=== PATIENT | male | born 1950 | race Caucasian/White ===

== ENCOUNTER 2022-06-04 04:23 | Day surgery (SDC) | payer OTHER ==
[~2022-06-04 04:23] MED LIST: BSS (NA/CA/MG/K) BALANCED SALT SOLUTION OPHTH SOLN 15 ML BOTTLE IO ONE; CHONDROITIN SU A/HYALUR SOD 1 KIT IO ONE; PHENYLEPHRINE/KETOROLAC 4 ML VIAL IO ONE; TETRACAINE 0.5% OPHTH SOLN 2 ML BOTTLE OS ONE; TOBRAMYCIN/DEXAMETHASONE OPHTH. OINTMENT 1 TUBE OS ONE; TRYPAN BLUE 0.5 ML DISP.SYRIN IO ONE
[2022-06-04 07:10] VITALS: RESP 18; BMI 26.6
[2022-06-04] MEDS ORDERED: TOBRAMYCIN/DEXAMETHASONE OPHTH. OINTMENT 1 TUBE ONE (07:10)
[2022-06-04] MEDS ORDERED: PHENYLEPHRINE/KETOROLAC 4 ML VIAL IO ONE ×2 (07:10→11:23)
[2022-06-04] MEDS ORDERED: POVIDONE-IODINE 5% OPHTHALMIC PREP 30 ML SOLUTION ONE (07:10)
[2022-06-04] MEDS ORDERED: LIDOCAINE HCL/PF 1% SDV 5ML VIAL ONE (07:13)
[2022-06-04] MEDS ORDERED: CIPROFLOXACIN HCL 0.3% OPHTH 2.5ML BOTTLE OP SCH (07:30)
[2022-06-04] MEDS ORDERED: ACETAMINOPHEN 325 MG TABLET (FP) PO PRN (07:30)
[2022-06-04] MEDS ORDERED: DICLOFENAC SODIUM 0.1% OPHTHALMIC 2.5ML BOTTLE OP SCH (07:30)
[2022-06-04] MEDS ORDERED: PHENYLEPHRINE 2.5% OPHTH SOLN 15 ML BOTTLE OP SCH (07:30)
[2022-06-04] MEDS ORDERED: TROPICAMIDE 1% OPHTH SOLN 15 ML BOTTLE OP SCH (07:30)
[2022-06-04] MEDS ORDERED: TROPICAMIDE 1% OPHTH SOLN 15 ML BOTTLE ONE (07:35)
[2022-06-04] MEDS ORDERED: MIDAZOLAM HCL 2 MG/2 ML SINGLE DOSE VIAL ONE (10:20)
[2022-06-04] MEDS ORDERED: PROPOFOL 20 ML ONE (10:36)
[2022-06-04] MEDS ORDERED: BUPIVACAINE HCL/PF 0.75% 10 ML VIAL RB ONE (11:05)
[2022-06-04] MEDS ORDERED: LIDOCAINE HCL/PF 2% SDV 5ML VIAL PNB ONE (11:05)
[2022-06-04] MEDS ORDERED: BSS (NA/CA/MG/K) BALANCED SALT SOLUTION OPHTH SOLN 15 ML BOTTLE IO ONE (11:15)
[2022-06-04] MEDS ORDERED: TRYPAN BLUE 0.5 ML DISP.SYRIN IO ONE (11:16)
[2022-06-04] MEDS ORDERED: CHONDROITIN SU A/HYALUR SOD 1 KIT IO ONE (11:17)
[2022-06-04] MEDS ORDERED: TOBRAMYCIN/DEXAMETHASONE OPHTH. OINTMENT 1 TUBE OS ONE (11:36)
[2022-06-04 14:19] VITALS: BP 131/71; PULSE 67; TEMP 97.9
== END 2022-06-04 13:03 | disposition home or self-care (01) ==
LOC: JASU-SURG 04:23
PROVIDERS: ATTEND Ophthalmology
PROC: 08RK3JZ Replacement of Left Lens with Synthetic Substitute, Percutaneous Approach (ICD-10-PCS; principal; 2022-06-04 10:30)
DX: H26.9 Unspecified cataract (principal)
CPT/HCPCS: C9803-CS; J1097; U0003; U0005; V2632

== ENCOUNTER 2022-07-02 04:04 | Day surgery (SDC) | payer OTHER ==
[2022-06-30 15:56] VITALS: BMI 26.7
[~2022-07-02 04:04] MED LIST changes: -BSS (NA/CA/MG/K) BALANCED SALT SOLUTION OPHTH SOLN 15 ML BOTTLE IO ONE; -CHONDROITIN SU A/HYALUR SOD 1 KIT IO ONE; -TETRACAINE 0.5% OPHTH SOLN 2 ML BOTTLE OS ONE; +TOBRAMYCIN/DEXAMETHASONE OPHTH. OINTMENT 1 TUBE OD ONE; -TOBRAMYCIN/DEXAMETHASONE OPHTH. OINTMENT 1 TUBE OS ONE; -TRYPAN BLUE 0.5 ML DISP.SYRIN IO ONE
[2022-07-02] MEDS ORDERED: PHENYLEPHRINE 2.5% OPTHALMIC DROP 2ML BOTTLE ONE (06:16)
[2022-07-02] MEDS ORDERED: CIPROFLOXACIN HCL 0.3% OPHTH 2.5ML BOTTLE ONE (06:16)
[2022-07-02] MEDS ORDERED: TROPICAMIDE 1% OPHTH SOLN 15 ML BOTTLE ONE (06:16)
[2022-07-02] MEDS ORDERED: DICLOFENAC SODIUM 0.1% OPHTHALMIC 2.5ML BOTTLE ONE (06:16)
[2022-07-02] MEDS ORDERED: TROPICAMIDE 1% OPHTH SOLN 15 ML BOTTLE OD ONE ×3 (06:40→06:50)
[2022-07-02] MEDS ORDERED: CIPROFLOXACIN HCL 0.3% OPHTH 2.5ML BOTTLE OD ONE ×3 (06:40→06:50)
[2022-07-02] MEDS ORDERED: PHENYLEPHRINE 2.5% OPHTH SOLN 15 ML BOTTLE OD ONE ×3 (06:40→06:50)
[2022-07-02] MEDS ORDERED: DICLOFENAC SODIUM 0.1% OPHTHALMIC 2.5ML BOTTLE OD ONE ×3 (06:40→06:50)
[2022-07-02 06:41] VITALS: RESP 18
[2022-07-02] MEDS ORDERED: LIDOCAINE HCL/PF 2% SDV 5ML VIAL ONE ×2 (06:46→07:21)
[2022-07-02] MEDS ORDERED: EPINEPHrine/PF 1 MG/1 ML (1:1,000) AMPULE ONE (06:46)
[2022-07-02] MEDS ORDERED: TOBRAMYCIN/DEXAMETHASONE OPHTH. OINTMENT 1 TUBE ONE (06:46)
[2022-07-02] MEDS ORDERED: BUPIVACAINE HCL/PF 0.75% 10 ML VIAL ONE (06:47)
[2022-07-02] MEDS ORDERED: LIDOCAINE HCL/PF 1% SDV 5ML VIAL ONE (06:47)
[2022-07-02] MEDS ORDERED: POVIDONE-IODINE 5% OPHTHALMIC PREP 30 ML SOLUTION ONE (06:48)
[2022-07-02] MEDS ORDERED: ACETAMINOPHEN 325 MG TABLET (FP) PO PRN (07:20)
[2022-07-02] MEDS ORDERED: PHENYLEPHRINE 2.5% OPHTH SOLN 15 ML BOTTLE OP SCH (07:30)
[2022-07-02] MEDS ORDERED: KETOROLAC TROMETHAMINE 0.5% EYE DROP 1 DROP DROPS OP SCH (07:30)
[2022-07-02] MEDS ORDERED: TROPICAMIDE 1% OPHTH SOLN 15 ML BOTTLE OP SCH (07:30)
[2022-07-02] MEDS ORDERED: CIPROFLOXACIN HCL 0.3% OPHTH 2.5ML BOTTLE OP SCH (07:30)
[2022-07-02] MEDS ORDERED: MIDAZOLAM HCL 2 MG/2 ML SINGLE DOSE VIAL ONE (07:38)
[2022-07-02] MEDS ORDERED: PROPOFOL 20 ML ONE (07:43)
[2022-07-02] MEDS ORDERED: BUPIVACAINE HCL/PF 0.75% 10 ML VIAL PNB ONE (07:47)
[2022-07-02] MEDS ORDERED: LIDOCAINE HCL/PF 2% SDV 5ML VIAL PNB ONE (07:47)
[2022-07-02] MEDS ORDERED: POVIDONE-IODINE 5% OPHTHALMIC PREP 30 ML SOLUTION OD ONE (07:51)
[2022-07-02] MEDS ORDERED: BSS (NA/CA/MG/K) BALANCED SALT SOLUTION OPHTH SOLN 15 ML BOTTLE OD ONE (07:56)
[2022-07-02] MEDS ORDERED: CHONDROITIN SU A/HYALUR SOD 1 KIT IO ONE (07:58)
[2022-07-02] MEDS ORDERED: TETRACAINE 0.5% OPHTH SOLN 2 ML BOTTLE OD ONE (08:00)
[2022-07-02] MEDS ORDERED: PHENYLEPHRINE/KETOROLAC 4 ML VIAL IO ONE (08:05)
[2022-07-02] MEDS ORDERED: TOBRAMYCIN/DEXAMETHASONE OPHTH. OINTMENT 1 TUBE OD ONE (08:19)
[2022-07-02 08:39] VITALS: PULSE 80
[2022-07-02 09:29] VITALS: BP 120/60; TEMP 98
== END 2022-07-02 09:31 | disposition home or self-care (01) ==
LOC: JASU-SURG 04:04
PROVIDERS: ATTEND Ophthalmology
PROC: 08RJ3JZ Replacement of Right Lens with Synthetic Substitute, Percutaneous Approach (ICD-10-PCS; principal; 2022-07-02 07:30)
DX: H25.11 Age-related nuclear cataract, right eye (principal)
CPT/HCPCS: J1097; V2632